=== PATIENT | female | born 1960 | race Caucasian/White ===

== ENCOUNTER 2019-08-01 11:19 | Observation (INO) ==
[2019-08-01 12:30] LABS: Basophils % 0.1 % (0.0-0.8); Hematocrit 39.1 VOL% (35.7-47.0); Hemoglobin 13.1 GM/DL (12.0-16.0); Immature Granulocytes % 0.8 %; Immature Granulocytes Absolute 0.07 #; Lymphocytes % 12.3 % (21.3-54.2); Mean Corpuscular HGB Conc 33.5 GM/DL (32-36); Mean Corpuscular Volume 92.4 FL (87-102); Mean Platelet Volume 11.5 FL (9.6-12.0); Neutrophils % 80.8 % (38.7-73.9); Platelet Count 198 T/CUMM (130-400); Red Blood Count 4.23 MC/CUMM (3.8-5.5); Red Cell Distribution Width 13.2 % (9.3-17.3); White Blood Count 8.4 T/CUMM (4-12)
[2019-08-01 12:54] LABS: Alanine Aminotransferase 43 U/L (13-56); Albumin 3.5 G/DL (3.4-5.0); Alkaline Phosphatase 98 U/L (45-117); Amylase 53 U/L (25-115); Aspartate Amino Transferase 52 U/L (0-37); Bilirubin,Total < 0.39 MG/DL (0.2-1.0); Blood Urea Nitrogen 25 MG/DL (7-18); Calcium 8.7 MG/DL (8.5-10.1); Estimated Glom Filtration Rate 37 ML/MIN; Glucose 94 MG/DL (74-106); Osmolality,Calculated 263.8 MOS/KG (273-304); Total Protein 7.8 G/DL (6.4-8.3)
[2019-08-01] MEDS ORDERED: SODIUM CHLORIDE 0.9% 1,000 ML IV STA (12:58)
[2019-08-01] MEDS ORDERED: ONDANSETRON 4 MG/2 ML VIAL IV PRN (14:29)
[2019-08-01] MEDS ORDERED: hydrALAZINE 20 MG/1 ML VIAL IV PRN (14:44)
[2019-08-01] MEDS: SODIUM CHLORIDE 0.9% 1,000 ML IV SCH (16:30)
[2019-08-01] MEDS ORDERED: SODIUM CHLORIDE 0.9% 1,000 ML IV ONE (21:00)
[2019-08-02 04:47] LABS: Basophils % 0.2 % (0.0-0.8); Eosinophils % 0.4 % (0.00-10.9); Hematocrit 37.3 VOL% (35.7-47.0); Hemoglobin 12.3 GM/DL (12.0-16.0); Immature Granulocytes % 0.2 %; Immature Granulocytes Absolute 0.01 #; Lymphocytes # 1.2 10*3/uL (1.4-4.0); Lymphocytes % 25.1 % (21.3-54.2); Mean Corpuscular Volume 90.8 FL (87-102); Mean Platelet Volume 12.1 FL (9.6-12.0); Monocytes % 10.6 % (1.7-12.7); Neutrophils % 63.5 % (38.7-73.9); Platelet Count 170 T/CUMM (130-400); Red Blood Count 4.11 MC/CUMM (3.8-5.5); Red Cell Distribution Width 13.1 % (9.3-17.3); White Blood Count 4.6 T/CUMM (4-12)
[2019-08-02 05:14] LABS: Calcium 8.2 MG/DL (8.5-10.1)
[2019-08-02] MEDS: SODIUM CHLORIDE 0.9% 1,000 ML IV SCH ×2 (05:14→20:40)
[2019-08-02] MEDS ORDERED: ALBUTEROL 2.5 MG/3 ML NEB RESP TX PRN (07:26)
[2019-08-02] MEDS ORDERED: ERGOCALCIFEROL 50,000 UNIT CAPSULE PO SCH (07:30)
[2019-08-02] MEDS: LORATADINE 10 MG TABLET PO SCH ×2 (08:35→20:34)
[2019-08-02] MEDS: OLMESARTAN 20 MG TABLET PO SCH ×2 (08:35→20:35)
[2019-08-02] MEDS: hydrALAZINE 25 MG TABLET PO SCH ×3 (08:35→20:36)
[2019-08-02] MEDS: PANTOPRAZOLE 40 MG VIAL IV SCH (08:36)
[2019-08-02] MEDS: tiZANidine 4 MG TABLET PO SCH ×2 (11:17→20:35)
[2019-08-02] MEDS ORDERED: SODIUM CHLORIDE 0.9% 250 ML IV ONE (12:55)
[2019-08-03 06:06] LABS: Basophils % 0.2 % (0.0-0.8); Eosinophils # 0.1 10*3/uL (0.0-0.87); Eosinophils % 1.6 % (0.00-10.9); Hematocrit 37.7 VOL% (35.7-47.0); Hemoglobin 12.4 GM/DL (12.0-16.0); Immature Granulocytes % 0.5 %; Immature Granulocytes Absolute 0.02 #; Lymphocytes # 1.5 10*3/uL (1.4-4.0); Lymphocytes % 34.3 % (21.3-54.2); Mean Corpuscular HGB Conc 32.9 GM/DL (32-36); Mean Corpuscular Volume 92.9 FL (87-102); Mean Platelet Volume 11.6 FL (9.6-12.0); Monocytes % 7.9 % (1.7-12.7); Neutrophils % 55.5 % (38.7-73.9); Platelet Count 177 T/CUMM (130-400); Red Blood Count 4.06 MC/CUMM (3.8-5.5); Red Cell Distribution Width 13.1 % (9.3-17.3); White Blood Count 4.4 T/CUMM (4-12)
[2019-08-03 06:44] LABS: Calcium 8.3 MG/DL (8.5-10.1); Osmolality,Calculated 277.4 MOS/KG (273-304)
[2019-08-03] MEDS: tiZANidine 4 MG TABLET PO SCH ×2 (08:25→20:55)
[2019-08-03] MEDS: PANTOPRAZOLE 40 MG VIAL IV SCH (08:26)
[2019-08-03] MEDS: hydrALAZINE 25 MG TABLET PO SCH (08:30)
[2019-08-03] MEDS: OLMESARTAN 20 MG TABLET PO SCH ×2 (08:30→20:56)
[2019-08-03] MEDS: LORATADINE 10 MG TABLET PO SCH ×2 (08:30→20:55)
[2019-08-03] MEDS ORDERED: POLYETHYLENE GLYCOL POWDER 255 GM BOTTLE PO ONE (18:00)
[2019-08-03] MEDS ORDERED: MAGNESIUM CITRATE 300 ML BOTTLE PO ONE (21:00)
[2019-08-03] MEDS: SODIUM CHLORIDE 0.9% 1,000 ML IV SCH (23:07)
[2019-08-04 05:19] LABS: Basophils % 0.2 % (0.0-0.8); Eosinophils # 0.1 10*3/uL (0.0-0.87); Eosinophils % 0.9 % (0.00-10.9); Hematocrit 38.5 VOL% (35.7-47.0); Hemoglobin 12.7 GM/DL (12.0-16.0); Immature Granulocytes % 0.2 %; Immature Granulocytes Absolute 0.01 #; Lymphocytes # 1.5 10*3/uL (1.4-4.0); Mean Corpuscular Volume 92.1 FL (87-102); Mean Platelet Volume 11.5 FL (9.6-12.0); Monocytes % 9.4 % (1.7-12.7); Neutrophils % 62.3 % (38.7-73.9); Platelet Count 177 T/CUMM (130-400); Red Blood Count 4.18 MC/CUMM (3.8-5.5); White Blood Count 5.4 T/CUMM (4-12)
[2019-08-04 05:41] LABS: Calcium 9.2 MG/DL (8.5-10.1); Osmolality,Calculated 274.5 MOS/KG (273-304)
[2019-08-04 05:46] LABS: Eosinophils 1 % (0-10); Hypochromasia 1+; Lymphocytes 30 % (20-55); Platelet Estimate Adequate; Segmented Neutrophils 63 % (50-85); Total Cells Counted 100
[2019-08-04] MEDS ORDERED: LACTATED RINGERS 1,000 ML IV SCH (07:00)
[2019-08-04] MEDS ORDERED: LIDOCAINE 2% 5 ML VIAL ONE (09:00)
[2019-08-04] MEDS ORDERED: propofoL 200 MG/20 ML VIAL IV ONE (09:00)
[2019-08-04] MEDS: SODIUM CHLORIDE 0.9% 1,000 ML IV SCH ×2 (09:42→10:49)
[2019-08-04] MEDS: OLMESARTAN 20 MG TABLET PO SCH (10:43)
[2019-08-04] MEDS: PANTOPRAZOLE 40 MG VIAL IV SCH (10:44)
[2019-08-04] MEDS: tiZANidine 4 MG TABLET PO SCH (10:49)
[2019-08-04] MEDS: LORATADINE 10 MG TABLET PO SCH (10:49)
[2019-08-04 15:49] VITALS: BP 160/89
== END 2019-08-04 16:07 | disposition home or self-care (01) | DRG 394 ==
LOC: N.ED 11:19 → INTOOBSV 14:32 → SUPCPDRO 14:32 → SUATTDRO 14:32 → N.EDINP 14:32 → N.2E 15:38
PROVIDERS: ADMIT Internal Medicine; ATTEND Internal Medicine

== ENCOUNTER 2022-07-08 11:03 | Inpatient (IN) ==
[2022-07-08] MEDS ORDERED: SODIUM CHLORIDE 0.9% 1,000 ML IV STA (12:51)
[2022-07-08 14:11] LABS: Basophils % 0.1 % (0.0-0.8); Hematocrit 39.7 VOL% (35.7-47.0); Immature Granulocytes % 1.3 %; Immature Granulocytes Absolute 0.27 #; Lymphocytes # 0.7 10*3/uL (1.4-4.0); Lymphocytes % 3.5 % (21.3-54.2); Mean Corpuscular HGB Conc 32.7 GM/DL (32-36); Mean Corpuscular Volume 90.6 FL (87-102); Mean Platelet Volume 11.4 FL (9.6-12.0); Monocytes # 0.7 10*3/uL (0.11-0.8); Monocytes % 3.4 % (1.7-12.7); Neutrophils % 91.7 % (38.7-73.9); Platelet Count 221 T/CUMM (130-400); Red Blood Count 4.38 MC/CUMM (3.8-5.5); Red Cell Distribution Width 13.2 % (9.3-17.3)
[2022-07-08 14:28] LABS: Bilirubin,Total 0.7 MG/DL (0.20-1.00); Osmolality,Calculated 273.1 MOS/KG (273-304); Total Protein 6.7 G/DL (6.4-8.2)
[2022-07-08 14:38] LABS: Glucose,Urine (UA) Negative (Negative); Ketones,Urine 15 mg/dL (Negative); Nitrite,Urine Negative (Negative); Protein,Urine 100 mg/dL (Negative); Urine Appearance Clear (Clear); Urine Color Yellow (Yellow); Urine Specific Gravity >= 1.030 (1.001-1.035); Urine pH 5.5 (4.5-8.0)
[2022-07-08 14:39] LABS: Bilirubin,Urine Small mg/dL (Negative); Blood, Urine Trace mg/dL (Negative); Urine Urobilinogen 0.2 eU/dL (<2.0)
[2022-07-08] MEDS ORDERED: LEVOFLOXACIN INJ 500 MG/100 ML PREMIX IV STA (14:39)
[2022-07-08] MEDS ORDERED: metroNIDAZOLE INJ 500 MG/100 ML PREMIX IV ONE (14:40)
[2022-07-08 14:41] LABS: Mucus,Urine Occasional /LPF (Occasional); RBC,Urine 2 /HPF (0-4); Squamous Epithelial Cell,Urine Occasional /HPF (0-10)
[2022-07-08] MEDS ORDERED: MORPHINE 2 MG/1 ML SYRINGE IV PRN (15:41)
[2022-07-08] MEDS: LACTATED RINGERS 1,000 ML IV SCH (18:46)
[2022-07-08] MEDS: ONDANSETRON 4 MG/2 ML VIAL IV PRN (19:37)
[2022-07-08] MEDS: metroNIDAZOLE INJ 500 MG/100 ML PREMIX IV SCH (23:29)
[2022-07-09] MEDS: LACTATED RINGERS 1,000 ML IV SCH ×3 (01:06→21:43)
[2022-07-09 06:01] LABS: Basophils % 0.3 % (0.0-0.8); Eosinophils # 0.1 10*3/uL (0.0-0.87); Eosinophils % 0.4 % (0.00-10.9); Hematocrit 36.6 VOL% (35.7-47.0); Hemoglobin 11.9 GM/DL (12.0-16.0); Immature Granulocytes % 1.8 %; Immature Granulocytes Absolute 0.27 #; Lymphocytes # 0.9 10*3/uL (1.4-4.0); Lymphocytes % 5.9 % (21.3-54.2); Mean Corpuscular HGB Conc 32.5 GM/DL (32-36); Mean Corpuscular Volume 91.5 FL (87-102); Mean Platelet Volume 11.4 FL (9.6-12.0); Monocytes # 0.7 10*3/uL (0.11-0.8); Monocytes % 4.7 % (1.7-12.7); Neutrophils % 86.9 % (38.7-73.9); Platelet Count 203 T/CUMM (130-400); Red Cell Distribution Width 13.4 % (9.3-17.3); White Blood Count 15.2 T/CUMM (4-12)
[2022-07-09 06:20] LABS: Calcium 9.2 MG/DL (8.5-10.1)
[2022-07-09] MEDS: metroNIDAZOLE INJ 500 MG/100 ML PREMIX IV SCH ×2 (07:21→14:53)
[2022-07-09] MEDS ORDERED: HYDROmorphone 1 MG/1 ML SYRINGE IV PRN (09:57)
[2022-07-09] MEDS: KETOROLAC 30 MG/1 ML VIAL IV SCH ×3 (10:13→21:44)
[2022-07-09] MEDS: LEVOFLOXACIN INJ 750 MG/150 ML PREMIX IV SCH (17:00)
[2022-07-09] MEDS: ONDANSETRON 4 MG/2 ML VIAL IV PRN (21:47)
[2022-07-10] MEDS: metroNIDAZOLE INJ 500 MG/100 ML PREMIX IV SCH ×4 (00:23→23:20)
[2022-07-10] MEDS: LACTATED RINGERS 1,000 ML IV SCH ×3 (01:29→15:35)
[2022-07-10] MEDS: KETOROLAC 30 MG/1 ML VIAL IV SCH ×4 (04:36→21:06)
[2022-07-10 05:45] LABS: Basophils % 0.1 % (0.0-0.8); Eosinophils # 0.2 10*3/uL (0.0-0.87); Eosinophils % 2.6 % (0.00-10.9); Hematocrit 33.2 VOL% (35.7-47.0); Immature Granulocytes % 1.8 %; Immature Granulocytes Absolute 0.15 #; Lymphocytes # 0.8 10*3/uL (1.4-4.0); Lymphocytes % 10.1 % (21.3-54.2); Mean Corpuscular HGB Conc 33.1 GM/DL (32-36); Mean Corpuscular Volume 90.5 FL (87-102); Mean Platelet Volume 11.3 FL (9.6-12.0); Monocytes # 0.7 10*3/uL (0.11-0.8); Monocytes % 8.3 % (1.7-12.7); Neutrophils % 77.1 % (38.7-73.9); Platelet Count 192 T/CUMM (130-400); Red Blood Count 3.67 MC/CUMM (3.8-5.5); Red Cell Distribution Width 13.2 % (9.3-17.3); White Blood Count 8.2 T/CUMM (4-12)
[2022-07-10 06:02] LABS: Calcium 8.7 MG/DL (8.5-10.1); Osmolality,Calculated 274.8 MOS/KG (273-304); Potassium 3.6 MMOL/L (3.5-5.1)
[2022-07-10] MEDS: ENOXAPARIN 40 MG/0.4 ML SYRINGE SUBCUT SCH (11:00)
[2022-07-10] MEDS: LEVOFLOXACIN INJ 750 MG/150 ML PREMIX IV SCH (15:33)
[2022-07-10] MEDS: ONDANSETRON 4 MG/2 ML VIAL IV PRN (15:35)
[2022-07-11] MEDS: LACTATED RINGERS 1,000 ML IV SCH ×3 (04:07→15:48)
[2022-07-11] MEDS: KETOROLAC 30 MG/1 ML VIAL IV SCH ×3 (04:09→16:47)
[2022-07-11 08:34] LABS: INR 1.1; PT Patient Result 11.9 SECS (10.1-12.1)
[2022-07-11] MEDS: metroNIDAZOLE INJ 500 MG/100 ML PREMIX IV SCH ×2 (09:01→15:48)
[2022-07-11] MEDS ORDERED: POLYETHYLENE GLYCOL POWDER 17 GM PACK PO SCH (10:00)
[2022-07-11] MEDS: ENOXAPARIN 40 MG/0.4 ML SYRINGE SUBCUT SCH (10:30)
[2022-07-11] MEDS: ONDANSETRON 4 MG/2 ML VIAL IV PRN ×2 (12:20→16:52)
[2022-07-11] MEDS: LEVOFLOXACIN INJ 750 MG/150 ML PREMIX IV SCH (16:50)
[2022-07-12] MEDS: KETOROLAC 30 MG/1 ML VIAL IV SCH ×5 (02:00→21:28)
[2022-07-12] MEDS: metroNIDAZOLE INJ 500 MG/100 ML PREMIX IV SCH ×4 (02:17→22:55)
[2022-07-12] MEDS: LACTATED RINGERS 1,000 ML IV SCH ×3 (02:18→21:27)
[2022-07-12] MEDS ORDERED: LOPERAMIDE 2 MG CAPSULE PO PRN (07:48)
[2022-07-12] MEDS ORDERED: OLMESARTAN 5 MG TABLET PO PRN (08:54)
[2022-07-12] MEDS: BACILLUS COAGULANS CAPLET PO SCH (09:20)
[2022-07-12] MEDS: OLMESARTAN 20 MG TABLET PO SCH (09:21)
[2022-07-12] MEDS: hydrALAZINE 25 MG TABLET PO SCH (09:21)
[2022-07-12] MEDS: ENOXAPARIN 40 MG/0.4 ML SYRINGE SUBCUT SCH (11:35)
[2022-07-12] MEDS: LEVOFLOXACIN INJ 750 MG/150 ML PREMIX IV SCH (18:02)
[2022-07-12] MEDS: VANCOMYCIN 125 MG CAPSULE PO SCH (18:57)
[2022-07-12] MEDS ORDERED: ONDANSETRON 4 MG TABLET PO PRN (22:17)
[2022-07-12] MEDS: ONDANSETRON ODT 4 MG TABLET PO PRN (22:25)
[2022-07-13] MEDS: VANCOMYCIN 125 MG CAPSULE PO SCH ×4 (00:35→17:13)
[2022-07-13] MEDS: LACTATED RINGERS 1,000 ML IV SCH ×3 (00:35→15:23)
[2022-07-13] MEDS: KETOROLAC 30 MG/1 ML VIAL IV SCH ×4 (03:37→22:36)
[2022-07-13] MEDS: OLMESARTAN 20 MG TABLET PO SCH (08:21)
[2022-07-13] MEDS: BACILLUS COAGULANS CAPLET PO SCH (08:21)
[2022-07-13] MEDS: hydrALAZINE 25 MG TABLET PO SCH (08:21)
[2022-07-13] MEDS: metroNIDAZOLE INJ 500 MG/100 ML PREMIX IV SCH ×3 (08:27→22:36)
[2022-07-13] MEDS ORDERED: DIAZEPAM 5 MG TABLET PO ONE (10:00)
[2022-07-13] MEDS ORDERED: fentaNYL 100 MCG/2 ML VIAL IV ONE (10:00)
[2022-07-13] MEDS ORDERED: MIDAZOLAM 2 MG/2 ML VIAL IV ONE (10:00)
[2022-07-13] MEDS: ENOXAPARIN 40 MG/0.4 ML SYRINGE SUBCUT SCH (10:50)
[2022-07-13] MEDS ORDERED: hydrALAZINE 20 MG/1 ML VIAL ONE (14:06)
[2022-07-13] MEDS ORDERED: hydrALAZINE 20 MG/1 ML VIAL IV ONE (14:13)
[2022-07-13] MEDS: LEVOFLOXACIN INJ 750 MG/150 ML PREMIX IV SCH (15:20)
[2022-07-13] MEDS: ONDANSETRON 4 MG/2 ML VIAL IV PRN (20:42)
[2022-07-14] MEDS: LACTATED RINGERS 1,000 ML IV SCH ×2 (01:25→08:52)
[2022-07-14] MEDS: VANCOMYCIN 125 MG CAPSULE PO SCH ×5 (01:28→23:44)
[2022-07-14] MEDS: KETOROLAC 30 MG/1 ML VIAL IV SCH (05:13)
[2022-07-14] MEDS: hydrALAZINE 25 MG TABLET PO SCH (08:48)
[2022-07-14] MEDS: BACILLUS COAGULANS CAPLET PO SCH (08:48)
[2022-07-14] MEDS: OLMESARTAN 20 MG TABLET PO SCH (08:48)
[2022-07-14] MEDS: metroNIDAZOLE INJ 500 MG/100 ML PREMIX IV SCH (08:50)
[2022-07-14] MEDS: ENOXAPARIN 40 MG/0.4 ML SYRINGE SUBCUT SCH (09:30)
[2022-07-14] MEDS: LEVOFLOXACIN 750 MG TABLET PO SCH (11:46)
[2022-07-14] MEDS: metroNIDAZOLE 500 MG TABLET PO SCH ×2 (14:38→20:53)
[2022-07-14] MEDS: ONDANSETRON 4 MG/2 ML VIAL IV PRN (17:48)
[2022-07-15] MEDS: VANCOMYCIN 125 MG CAPSULE PO SCH ×3 (06:14→17:52)
[2022-07-15] MEDS: metroNIDAZOLE 500 MG TABLET PO SCH (09:32)
[2022-07-15] MEDS: hydrALAZINE 25 MG TABLET PO SCH (09:32)
[2022-07-15] MEDS: OLMESARTAN 20 MG TABLET PO SCH (09:33)
[2022-07-15] MEDS: BACILLUS COAGULANS CAPLET PO SCH (09:33)
[2022-07-15] MEDS: LEVOFLOXACIN 750 MG TABLET PO SCH (09:33)
[2022-07-15] MEDS: ENOXAPARIN 40 MG/0.4 ML SYRINGE SUBCUT SCH (09:34)
[2022-07-15] MEDS: ONDANSETRON 4 MG/2 ML VIAL IV PRN (09:40)
[2022-07-15] MEDS: metroNIDAZOLE INJ 500 MG/100 ML PREMIX IV SCH ×2 (12:23→20:32)
[2022-07-15] MEDS: LEVOFLOXACIN INJ 750 MG/150 ML PREMIX IV SCH (12:26)
[2022-07-15] MEDS: ONDANSETRON ODT 4 MG TABLET PO PRN (18:02)
[2022-07-16] MEDS: VANCOMYCIN 125 MG CAPSULE PO SCH ×2 (00:03→05:46)
[2022-07-16] MEDS: metroNIDAZOLE INJ 500 MG/100 ML PREMIX IV SCH ×2 (03:43→11:00)
[2022-07-16 04:49] LABS: Basophils # 0.1 10*3/uL (0.0-0.2); Basophils % 0.5 % (0.0-0.8); Eosinophils # 0.1 10*3/uL (0.0-0.87); Eosinophils % 0.9 % (0.00-10.9); Hematocrit 35.6 VOL% (35.7-47.0); Hemoglobin 11.8 GM/DL (12.0-16.0); Immature Granulocytes % 3.2 %; Immature Granulocytes Absolute 0.35 #; Lymphocytes # 1.1 10*3/uL (1.4-4.0); Lymphocytes % 10.2 % (21.3-54.2); Mean Corpuscular HGB Conc 33.1 GM/DL (32-36); Mean Corpuscular Volume 89.7 FL (87-102); Mean Platelet Volume 10.1 FL (9.6-12.0); Monocytes # 0.7 10*3/uL (0.11-0.8); Monocytes % 6.1 % (1.7-12.7); Neutrophils % 79.1 % (38.7-73.9); Platelet Count 283 T/CUMM (130-400); Red Blood Count 3.97 MC/CUMM (3.8-5.5); Red Cell Distribution Width 13.7 % (9.3-17.3); White Blood Count 11.1 T/CUMM (4-12)
[2022-07-16 07:58] VITALS: BP 164/87
[2022-07-16] MEDS: hydrALAZINE 25 MG TABLET PO SCH (08:56)
[2022-07-16] MEDS: OLMESARTAN 20 MG TABLET PO SCH (08:56)
[2022-07-16] MEDS: BACILLUS COAGULANS CAPLET PO SCH (08:56)
[2022-07-16] MEDS: ENOXAPARIN 40 MG/0.4 ML SYRINGE SUBCUT SCH (09:30)
[2022-07-16] MEDS: LEVOFLOXACIN INJ 750 MG/150 ML PREMIX IV SCH (12:12)
== END 2022-07-16 12:23 | disposition home or self-care (01) | DRG 391 ==
LOC: N.ED 11:03 → N.EDINP 15:41 → N.3E 16:52
PROVIDERS: ADMIT Surgery; ATTEND Surgery